=== PATIENT | female | born 1985 | race Caucasian/White ===

== ENCOUNTER 2016-04-05 08:02 | Emergency (ER) | payer BC ==
[~2016-04-05] VITALS: Wt 95.0 kg
[~2016-04-05 08:02] MED LIST: AMO500 PO; IBUP-1542 PO
[2016-04-05] MEDS ORDERED: KETOROLAC 30 MG INJ IM STA (08:38)
[2016-04-05] MEDS ORDERED: DEXAMETHASONE 10 MG/ML 1 ML INJ IM ONE (09:00)
--- NOTE | 2016-04-05 09:00 | ERD ---
ER Documentation Chief Complaint Date/Time DATE: 04/05/16 TIME: 08:59 Chief Complaint sore throat and bilateral ear pain since last night. HPI 30-year-old female comes in with sore throat that started last night, bilateral ear pain congestion. Patient states that her throat feels swollen, like she has an allergic reaction. She denies any new foods, medications lotions or creams with this. She does associate this with nasal congestion and ear fullness and pain. She denies cough, denies fever. ROS All systems reviewed and are negative except as per history of present illness. Medications Home Meds Active Scripts Ibuprofen* (Motrin*) 600 Mg Tab, 600 MG PO Q6, #30 TAB Prov:PO JOHNSON PA-C 04/05/16 Amoxicillin/Potassium Clav (Amox-Clav 875-125 mg Tablet) 875-125 mg Tab, 1 TAB PO BID for 7 Days, #14 TAB Prov:PO JOHNSON PA-C 04/05/16 Ibuprofen* (Motrin*) 600 Mg Tab, 600 MG PO Q6H Y for PAIN for 7 Days, TAB Prov:SOFIE MCKEON PA-C 02/23/16 Amoxicillin* (Amoxicillin*) 500 Mg Cap, 500 MG PO TID for 10 Days, CAP Prov:SOFIE MCKEON PA-C 02/23/16 Allergies Allergies: Coded Allergies: No Known Allergy (Unverified , 02/23/16) PMhx/Soc History of Surgery: Yes (caesarian section) Anesthesia Reaction: No Hx Neurological Disorder: No Hx Respiratory Disorders: No Hx Cardiac Disorders: No Hx Psychiatric Problems: No Hx Miscellaneous Medical Probl: No Hx Alcohol Use: No Hx Substance Use: No Hx Tobacco Use: No Smoking Status: Never smoker Physical Exam Vitals Vital Signs Date Time Temp Pulse Resp B/P Pulse Ox O2 Delivery O2 Flow Rate FiO2 04/05/16 08:05 98.0 100 21 139/84 98 Physical Exam General: Well-developed, well-nourished. The patient appears in no acute distress. HEENT: Head is normocephalic, atraumatic. No scleral icterus. Pupils are equal , round, and reactive. Oral mucous membranes are moist. No pharyngeal erythema. Uvula midline, no masses, no trismus. Neck: Supple. Nontender. Positive cervical anterior lymphadenopathy on the left side, no abscess Lungs: Clear to auscultation. Normal air movement. Heart: Regular rate and rhythm. S1 and S2 are normal. No murmurs, gallops, or rubs. Abdomen: Soft, nontender, nondistended. Bowel sounds are normoactive. Extremities: No clubbing or cyanosis. Normal pulses. Moving extremities x 4. No weakness. Neurologic: Alert and oriented 3. No focal deficits. Skin: Normal turgor. No rash or lesions. Results 24 hrs Current Medications Medications (Trade) Dose Ordered Sig/Ezequiel Route PRN Reason Start Time Stop Time Status Last Admin Dose Admin Ketorolac Tromethamine (Toradol) 30 mg ONCE STAT IM 04/05/16 08:38 04/05/16 08:39 04/05/16 08:53 Dexamethasone (Decadron) 10 mg ONCE ONCE IM 04/05/16 09:00 04/05/16 09:01 04/05/16 08:52 Procedures/MDM ED course: Patient was given Decadron, Toradol IM. After approximately an hour reexamination of HEENT was normal. No uvula deviation, no masses, no trismus. MDM: 30 year old female comes in with congestion and sore throat x 1 day. She states she feels like she is having swelling, but her ENT exam was unremarkable. She does have tender lymphadenopathy, pharyngitis and will be treated for early strep pharyngitis. There is no evidence of a peritonsillar abscess, which was discussed with the patient. I did explain we will be treating her for possible strep pharyngitis and may not see exudate yet since it has been less than 24 hours. She was advised to take ibuprofen for swelling, and antibiotics and recheck with her pcp. Departure Diagnosis: Primary Impression: Sore throat Condition: PO Domingo PA-C Apr 05, 2016 09:00
[2016-04-05] MEDS ORDERED: IBUP-1542 PO (09:53)
[2016-04-05] MEDS ORDERED: AMOX1TAB10 PO (09:53)
== END 2016-04-05 10:06 | disposition home or self-care (01) ==
LOC: FTE 08:02
DX: J02.9 Acute pharyngitis, unspecified (principal)
CPT/HCPCS: J1100; J1885; 96372